=== PATIENT | female | born 1995 | race Caucasian/White ===

== ENCOUNTER 2017-04-11 19:48 | Emergency (ER) | payer BC ==
[~2017-04-11] VITALS: Ht 162.6 cm; Wt 89.0 kg
[~2017-04-11 19:48] MED LIST: PAMELOR 10MG10 MG PO
[2017-04-11 19:50] VITALS: BP 111/78; TEMP 97.9
[2017-04-11] MEDS ORDERED: ZOFRAN 4MG T4 MG/TAB PO (20:48)
[2017-04-11] MEDS ORDERED: ADVIL200 MG PO (20:48)
[2017-04-11 22:56] VITALS: PULSE 74
== END 2017-04-11 23:02 | disposition home or self-care (01) ==
LOC: COL.ER 19:48
DX: G43.909 Migraine, unspecified, not intractable, without status migrainosus (principal); Z79.1 Long term (current) use of non-steroidal anti-inflammatories (NSAID)
CPT/HCPCS: J1200; J1885; J2550; J2765; J7030

== ENCOUNTER 2017-06-24 09:38 | Emergency (ER) | payer BC ==
[~2017-06-24] VITALS: Ht 162.6 cm; Wt 88.6 kg
[~2017-06-24 09:38] MED LIST changes: +ADVIL200 MG PO; +ZOFRAN 4MG T4 MG/TAB PO
[2017-06-24 09:46] VITALS: BP 114/60; TEMP 97.9
[2017-06-24] MEDS ORDERED: PHENERGAN 25 TA25 MG PO (12:05)
[2017-06-24 12:08] VITALS: PULSE 79
== END 2017-06-24 12:07 | disposition home or self-care (01) ==
LOC: COL.ER 09:38
DX: G43.809 Other migraine, not intractable, without status migrainosus (principal)
CPT/HCPCS: J1200; J2765